=== PATIENT | female | born 1955 | race Caucasian/White ===

== ENCOUNTER 2017-04-01 22:24 | Observation (INO) ==
--- NOTE | 2017-04-01 23:08 | Emergency Department Note ---
Disposition Clinical Impression: Weakness, Ambulatory dysfunction Disposition: Admitted As Inpatient Condition: Fair Referrals: Ajit Lindo MD [Primary Care Provider] - Time of Disposition: 03:41 General Adult HPI - General Chief complaint: ED General Medical Stated complaint: agitation/cold legs Time Seen by Provider: 04/01/17 22:47 Source: patient, EMS Limitations: no limitations Nursing Notes Reviewed: Yes Vital Signs Reviewed: Yes - History of Present Illness HPI Narrative: Mrs. Monahan, a 62-year-old female, presents from home via EMS for evaluation of multiple complaints. She states she has a headache consistent with her baseline typical headaches with no associated vertigo, changes in vision, nausea , vomiting, or trauma. States that she has lower extremity weakness and is unable to straighten her legs. This is been intermittent for the past week and she has an establishing appointment with Dr. Garcia in neurology this week. We should know she has lower back pain which is consistent with her chronic back pain. Of note, on EMS arrival to her house, patient refused to stand from her wheelchair. After prolonged discussion between the patient and EMS personnel, patient stood and walked to the EMS cot. ROS: Positive: As above Negative: Fever, chills, nausea, vomiting, chest pain, palpitations, dyspnea, diaphoresis, abdominal pains, changes in bowel or bladder, trauma including falls and no incontinence of bowel or bladder, no lower extremity tingling or genital numbness. Pain Scale: 9 - Related Data Home Medications Medication Instructions Recorded Confirmed Alendronate Sodium 70 mg PO QWEEK 02/08/15 10/11/15 Divalproex (12 HR) [Depakote (12 500 mg PO BID 02/08/15 10/11/15 HR)] Lamotrigine [Lamictal] 150 mg PO BID 02/08/15 10/11/15 Polyethylene Glycol 3350 [MiraLAX] 17 gm PO BID 02/08/15 02/08/15 Ranitidine HCl [Zantac] 150 mg PO BID 02/08/15 10/11/15 Sennosides/Docusate Sodium [Senna 1 each PO DAILY PRN 02/08/15 10/11/15 Plus] Tiagabine [Gabitril] 4 mg PO BID 02/08/15 10/11/15 Bioflav,Lemon/Vit Bcomp,C [Ear 1 each PO DAILY 10/11/15 10/11/15 Health Formula Caplet] Cetirizine HCl [Zyrtec] 10 mg PO DAILY 10/11/15 10/11/15 Ergocalciferol (VITAMIN D2) 50,000 unit PO QWEEK 10/11/15 10/11/15 [Vitamin D2 (50,000 UNIT)] Fluticasone Propionate Nasal 2 spray NS DAILY 10/11/15 10/11/15 [Flonase] LORazepam [Ativan] 2 mg PO TID PRN 10/11/15 10/11/15 Latanoprost [Xalatan] 1 drop BOTH EYES HS 10/11/15 10/11/15 Metoprolol [Lopressor] 25 mg PO BID 10/11/15 10/11/15 Oxybutynin [Ditropan] 5 mg PO BID 10/11/15 10/11/15 Previous Rx's Medication Instructions Recorded Azithromycin [Azithromycin 6-Tab 250 mg PO PER PKG DI #6 tab 10/27/15 Pack] Naproxen [Naprosyn] 500 mg PO BID PRN #30 tablet 04/28/16 Fluticasone Propionate Nasal 50 mcg NS DAILY #1 bottle 11/06/16 [Flonase] Allergies Allergy/AdvReac Type Severity Reaction Status Date / Time acetaminophen [From Percocet] Allergy See Verified 01/08/16 12:39 Comments Amoxicillin Allergy See Verified 01/08/16 12:39 Comments aspirin [ASA] Allergy See Verified 01/08/16 12:39 Comments codeine Allergy See Verified 01/08/16 12:39 Comments diazepam Allergy See Verified 01/08/16 12:39 Comments morphine Allergy See Verified 01/08/16 12:39 Comments Oxycodone Allergy See Verified 01/08/16 12:39 Comments STEROIDS Allergy See Uncoded 09/29/14 17:27 Comments All systems ED: reviewed and negative except as stated. Review of Systems: As Per HPI Past Medical History - Past Medical History Medical history: Reports: DVT, hypertension, migraine, seizures Surgical history: Reports: hysterectomy Psychiatric history: Reports: anxiety, previous psychiatric hospitalization - Social History Smoking Status: Never smoker Smokeless Tobacco Status: No Alcohol use: Reports: none Drug use: Reports: none Physical Exam Vital Signs Reviewed General: Patient is alert, oriented, and in no acute distress. She appears frail and older than stated age. Head: atraumatic, normocephalic Eye: normal appearance, PERRL, EOMI, no scleral icterus, no conjunctival injection ENT: mucous membranes dry, normal external ear exam Neck: normal inspection, trachea midline, full ROM Chest: normal inspection, symmetric chest rise Respiratory: Poor respiratory effort. Bilateral breath sounds are clear without wheezing, crackles, or rhonchi. Cardiovascular: Regular rate and rhythm. No clicks, rubs, gallops, or murmors. Normal heart sounds. Abdomen: Bowel sounds present normoactive x-4 quadrants. Abdomen is soft, nondistended, and nontender. No guarding or rebound. No organomegaly noted. Musculoskeletal: Spontaneously moving all extremities. Patient's lower extremity strength exam is 1/5 and obscured by lack of cooperation. Skin: warm, dry, intact. Neuro: Alert and oriented x4. Sensation light touch intact. Psych: Patient's affect is appropriate for situation. - General Limitations: no limitations General appearance: alert, in no apparent distress Course Course Narrative: Patient symptoms are vague, not acute, and she has an appointment already established to follow up with neurology. Physical exam is unreliable secondary to lack of patient cooperation. Per EMS, patient refused to stand until they are able to convince her to transition to their cot which she was able to walk unassisted. While in the emergency department, patient refuses to be weightbearing. Eventually, she did need to use the restroom and was provided a bedside commode. At baseline, patient ambulates with her walker. Over the last couple days, she has been using her wheelchair for mobility secondary to inability to ambulate secondary to weakness. 02:40 Patient is able to stand at bedside and is full weightbearing. She is asking staff to massage her legs. She is unable to independently transition to the bedside commode. Patient reassessed. She now states her pain is bilateral behind her knees. She denies weakness and says that it is popliteal pain that is preventing her from walking. Physical exam shows no Betancourt's cyst. Patient states she has a history of "ligament injury" in the back of her knees. She is agreeable to lidocaine patch. Patient reassessed. She continues to state weakness of her lower extremities. No improvement in her popliteal pain. She is not safe to go home at this time. Assessment: Weakness, inability to ambulate. Needs PT/OT consult. Has home healthcare [facility] but this is not enough care for her. I discussed the patient with the admitting hospitalist who agrees to accept the patient for continued evaluation and monitoring. Vital Signs Temperature 98.1 F 04/01/17 22:28 Pulse Rate 96 04/01/17 22:28 Respiratory Rate 16 04/01/17 22:28 Blood Pressure 117/75 04/01/17 22:28 O2 Sat by Pulse Oximetry 97 04/01/17 22:28 Temperature 98.1 F 04/02/17 03:29 Pulse Rate 98 04/02/17 03:29 Respiratory Rate 18 04/02/17 03:29 Blood Pressure 124/79 04/02/17 03:29 O2 Sat by Pulse Oximetry 98 04/02/17 03:29 Oxygen Delivery Oxygen Delivery Room Air Medical Decision Making - Lab Data Result diagrams: 04/01/17 23:37 04/01/17 23:37 Lab Results 04/01/17 04/01/17 04/01/17 Range/Units 23:37 23:37 23:37 WBC 8.2 (4.3-11.1) K/mcL RBC 4.85 (3.82-4.97) M/mcL Hgb 15.1 (11.5-15.4) g/dL Hct 45.6 H (35.3-44.9) % MCV 94.0 (83.0-100.0) fL MCH 31.1 (28.0-33.3) pg MCHC 33.1 (31.6-35.5) g/dL RDW 13.0 (11.5-14.5) % Plt Count 369 (140-400) K/mcL MPV 9.0 L (9.4-12.4) fL Immature Gran % 0.5 (0-4) % Seg Neutrophils % 70.7 % Lymphocytes % 21.2 % Monocytes % 7.1 % Eosinophils % 0.1 % Basophils % 0.4 % Neutrophils # 5.8 (1.6-8.9) K/mcL Lymphocytes # 1.7 (0.6-4.6) K/mcL Monocytes # 0.6 (0.0-1.3) K/mcL Eosinophils # 0.0 (0.0-0.6) K/mcL Basophils # 0.0 (0.0-0.2) K/mcL Sodium 142 (136-145) mEq/L Potassium 4.5 (3.5-5.1) mEq/L Chloride 107 (98-107) mEq/L Carbon Dioxide 27 (23-29) mEq/L BUN 20 (8-23) mg/dL Creatinine 0.59 L (0.60-1.20) mg/dL Est GFR ( Amer) > 60 (> 60) Est GFR (Non-Af Amer) > 60 (> 60) BUN/Creatinine Ratio 34 H (6-26) Glucose 95 (70-105) mg/dL Calculated Osmolality 296 (280-300) Calcium 10.0 (8.6-10.3) mg/dL Urine Color (Yellow) Urine Clarity (Clear) Urine pH (5.0-8.0) pH Units Ur Specific [place] (1.010-1.025) Urine Protein (Neg-Trace) mg/dL Urine Glucose (UA) (Normal) mg/dL Urine Ketones (Negative) mg/dL Urine Blood (Negative) Urine Nitrite (Negative) Urine Bilirubin (Negative) Urine Urobilinogen (Normal) mg/dL Ur Leukocyte Esterase (Negative) Urine Microscopic RBC (0-3) per hpf Urine Microscopic WBC (0-3) per hpf Ur Squamous Epith Cells (None-Few) per lpf Urine Bacteria (None-Few) per hpf Hyaline Casts (None-Few) per lpf Ur Culture Indicated? (NO) Valproic Acid 20 L (50-100) mcg/mL 04/02/17 Range/Units 02:55 WBC (4.3-11.1) K/mcL RBC (3.82-4.97) M/mcL Hgb (11.5-15.4) g/dL Hct (35.3-44.9) % MCV (83.0-100.0) fL MCH (28.0-33.3) pg MCHC (31.6-35.5) g/dL RDW (11.5-14.5) % Plt Count (140-400) K/mcL MPV (9.4-12.4) fL Immature Gran % (0-4) % Seg Neutrophils % % Lymphocytes % % Monocytes % % Eosinophils % % Basophils % % Neutrophils # (1.6-8.9) K/mcL Lymphocytes # (0.6-4.6) K/mcL Monocytes # (0.0-1.3) K/mcL Eosinophils # (0.0-0.6) K/mcL Basophils # (0.0-0.2) K/mcL Sodium (136-145) mEq/L Potassium (3.5-5.1) mEq/L Chloride (98-107) mEq/L Carbon Dioxide (23-29) mEq/L BUN (8-23) mg/dL Creatinine (0.60-1.20) mg/dL Est GFR ( Amer) (> 60) Est GFR (Non-Af Amer) (> 60) BUN/Creatinine Ratio (6-26) Glucose (70-105) mg/dL Calculated Osmolality (280-300) Calcium (8.6-10.3) mg/dL Urine Color Yellow (Yellow) Urine Clarity Clear (Clear) Urine pH 6.0 (5.0-8.0) pH Units Ur Specific [place] 1.023 (1.010-1.025) Urine Protein Trace (Neg-Trace) mg/dL Urine Glucose (UA) Normal (Normal) mg/dL Urine Ketones 80 H (Negative) mg/dL Urine Blood Negative (Negative) Urine Nitrite Negative (Negative) Urine Bilirubin Negative (Negative) Urine Urobilinogen Normal (Normal) mg/dL Ur Leukocyte Esterase Moderate H (Negative) Urine Microscopic RBC 0-3 (0-3) per hpf Urine Microscopic WBC 5-15 H (0-3) per hpf Ur Squamous Epith Cells Many H (None-Few) per lpf Urine Bacteria None Seen (None-Few) per hpf Hyaline Casts None Seen (None-Few) per lpf Ur Culture Indicated? NO. (NO) Valproic Acid (50-100) mcg/mL
[2017-04-01] MEDS ORDERED: 0.9 % Sodium Chloride 1,000 ML IVC ONE (23:24)
[2017-04-01] MEDS ORDERED: Acetaminophen 325 MG TABLET PO ONE (23:29)
[2017-04-01 23:46] LABS: Basophils % 0.4 %; Eosinophils % 0.1 %; Hematocrit 45.6 % (35.3-44.9); Hemoglobin 15.1 g/dL (11.5-15.4); Immature Granulocytes % 0.5 % (0-4); Lymphocytes # 1.7 K/mcL (0.6-4.6); Lymphocytes % 21.2 %; Mean Corpuscular HGB Conc 33.1 g/dL (31.6-35.5); Mean Corpuscular Hemoglobin 31.1 pg (28.0-33.3); Monocytes # 0.6 K/mcL (0.0-1.3); Monocytes % 7.1 %; Neutrophils # 5.8 K/mcL (1.6-8.9); Platelet Count 369 K/mcL (140-400); Red Blood Count 4.85 M/mcL (3.82-4.97); Segmented Neutrophils % 70.7 %
[2017-04-02 00:11] LABS: BUN/Creatinine Ratio 34 (6-26); Blood Urea Nitrogen 20 mg/dL (8-23); Carbon Dioxide 27 mEq/L (23-29); Chloride 107 mEq/L (98-107); Glucose 95 mg/dL (70-105); Osmolality,Calculated 296 (280-300); Potassium 4.5 mEq/L (3.5-5.1); Sodium 142 mEq/L (136-145); eGFR For African Americans > 60 (> 60); eGFR For Non-African Americans > 60 (> 60)
[2017-04-02 03:01] LABS: Bilirubin,Urine Negative (Negative); Blood,Urine Negative (Negative); Clarity,Urine Clear (Clear); Color,Urine Yellow (Yellow); Glucose,Urine (UA) Normal (Normal); Ketones,Urine 80 mg/dL (Negative); Leukocyte Esterase,Urine Moderate (Negative); Nitrite,Urine Negative (Negative); Protein,Urine Trace mg/dL (Neg-Trace); Specific Gravity,Urine 1.023 (1.010-1.025); Urobilinogen,Urine Normal (Normal)
[2017-04-02 03:03] LABS: Bacteria,Urine None Seen per hpf (None-Few); Hyaline Casts,Urine None Seen per lpf (None-Few); RBC,Urine 0-3 per hpf (0-3); Squamous Epithelial Cell,Urine Many per lpf (None-Few)
--- NOTE | 2017-04-02 03:41 | Emergency Department Note ---
START Narrative - START START: I examined this patient and my medical decision-making was reviewed with the Resident Physician. I agree with the documented findings, disposition and treatment plan as described except to the extent set forth below. pt here for bilat leg weakness. has home health come to her place three times a week she said. she can't get around at home. too weak in her legs. no focal deficits. needs admitted for possible placement. PT OT consult.
[2017-04-02] MEDS ORDERED: Sennosides/Docusate Sodium TABLET PO PRN (04:14)
[2017-04-02] MEDS ORDERED: Naloxone 0.4 MG/ML INJ IVP PRN (04:16)
--- NOTE | 2017-04-02 04:28 | Internal Med History&Physical ---
Date of Encounter: 04/02/17 Time of Encounter: 04:26 Assessment and Plan (1) Functional paraparesis Current visit: Yes Status: Acute b/l LE extremity possible with component of paresthesia PT/OT eval Explore placement if qualify but may be difficult given observation for now Close monitoring and functional testing to be further performed over next 24-48 hr (2) Epilepsy Current visit: No Status: Chronic continue AED Qualifiers: Epilepsy type: unspecified Intractability: not intractable Status epilepticus: without status epilepticus Qualified Code(s): G40.909 - Epilepsy , unspecified, not intractable, without status epilepticus (3) SLADE (generalized anxiety disorder) Current visit: No Status: Chronic continue ativan Internal Medicine - H&P: HPI Chief complaint: LLE weakness, cold feet, paresthesia History of present illness: Ms. Monahan is a 62 year old female with hx of seizure, HTN, anxiety who presents with acute on chronic symptoms of LLE weakness, cold feet, paresthesia . She reports recently having spent time in a SNF for 3-4 weeks in Jan 2017 for rehab. She has a chronic hx of b/l LE weakness. Since returning home, she has [facility] who visits 3 x weekly and uses a walker. Since wednesday this week, she developed acute worsening of b/l LE weakness associated with cold feet, paresthesia from knees down, unable to straighten the knee joint and weakness to the point where she has difficulty weight bear. She denies any recent trauma nor does she have urine or bowels problems associated. Past Med Surg Social Fam HX - Past Medical History Medical history: DVT, hypertension, migraine, seizures Psychiatric history: anxiety, previous psychiatric hospitalization - Past Surgical History Surgical History: hysterectomy - Social History Smoking Status: Never smoker Smokeless Tobacco Status: No Alcohol use: none Drug use: none - Family History Mother Living Status: Hx Family Cardiac Disorders: Yes Hx Family Respiratory Disorders: No Hx Family Cancer: No Hx Family GI Disorders: No Hx Family Endocrine Disorder: Yes (DM) Hx Family Neuromuscular Disorders: No Hx Family Neurologic Disorders: No Hx Family HEENT Disorders: No Hx Family Autoimmune Disorders: No Father Living Status: Hx Family Cardiac Disorders: Yes (CHF) Hx Family Respiratory Disorders: No Hx Family Cancer: No Hx Family GI Disorders: No Hx Family Endocrine Disorder: No Hx Family Neuromuscular Disorders: No Hx Family Neurologic Disorders: No Hx Family HEENT Disorders: No Hx Family Autoimmune Disorders: No Internal Medicine - H&P: Meds Alendronate Sodium 70 mg PO QWEEK 02/08/15 [History] Divalproex (12 HR) [Depakote (12 HR)] 500 mg PO BID 02/08/15 [History] Lamotrigine [Lamictal] 150 mg PO BID 02/08/15 [History] Polyethylene Glycol 3350 [MiraLAX] 17 gm PO BID 02/08/15 [History] Ranitidine HCl [Zantac] 150 mg PO BID 02/08/15 [History] Sennosides/Docusate Sodium [Senna Plus] 1 each PO DAILY PRN 02/08/15 [History] Tiagabine [Gabitril] 4 mg PO BID 02/08/15 [History] Bioflav,Lemon/Vit Bcomp,C [Ear Health Formula Caplet] 1 each PO DAILY 10/11/15 [ History] Cetirizine HCl [Zyrtec] 10 mg PO DAILY 10/11/15 [History] Ergocalciferol (VITAMIN D2) [Vitamin D2 (50,000 UNIT)] 50,000 unit PO QWEEK [History] Fluticasone Propionate Nasal [Flonase] 2 spray NS DAILY 10/11/15 [History] LORazepam [Ativan] 2 mg PO TID PRN 10/11/15 [History] Latanoprost [Xalatan] 1 drop BOTH EYES HS 10/11/15 [History] Metoprolol [Lopressor] 25 mg PO BID 10/11/15 [History] Oxybutynin [Ditropan] 5 mg PO BID 10/11/15 [History] Azithromycin [Azithromycin 6-Tab Pack] 250 mg PO PER PKG DI #6 tab 10/27/15 [Rx] Naproxen [Naprosyn] 500 mg PO BID PRN #30 tablet 04/28/16 [Rx] Fluticasone Propionate Nasal [Flonase] 50 mcg NS DAILY #1 bottle 11/06/16 [Rx] 3 Allergy/AdvReac Type Severity Reaction Status Date / Time acetaminophen [From Percocet] Allergy See Verified 01/08/16 12:39 Comments Amoxicillin Allergy See Verified 01/08/16 12:39 Comments aspirin [ASA] Allergy See Verified 01/08/16 12:39 Comments codeine Allergy See Verified 01/08/16 12:39 Comments diazepam Allergy See Verified 01/08/16 12:39 Comments morphine Allergy See Verified 01/08/16 12:39 Comments Oxycodone Allergy See Verified 01/08/16 12:39 Comments STEROIDS Allergy See Uncoded 09/29/14 17:27 Comments All Systems PM: A 10-system review of systems was performed and is negative for pertinent findings except as documented above in the HPI. Review of systems: ROS 14 point review of systems reviewed as best as possible given presentation. Pertinent positive or negative as per HPI or otherwise reviewed as negative - Constitutional Vitals: Temp Pulse Resp BP Pulse Ox 98.1 F 98 18 124/79 98 04/02/17 03:29 04/02/17 03:29 04/02/17 03:29 04/02/17 03:29 04/02/17 03:29 Exam: General - AAO x 3 Psych - Appropriate affect/speech. No agitation Eyes - ISAIAH. Eye lids intact. No scleral icterus Neuro - Generalized weakness of B/l LE extremities 4/5. Knee flexion with some resistance straightening Heart - Sinus. RRR. S1 and S2 present. No added HS/murmurs appreciated. No elevated JVD appreciated. Lung - Adequate air entry b/l, No crackles/wheezes appreciated GI - Soft, non-tender. No hepatosplenomegaly/ascites. BS+ - No CVA/suprapubic tenderness or palpable bladder distension Skin - Intact. No rash/petechiae/ecchymosis. Warm extremities. Peripheral foot pulse present Internal Med - H&P Results - Labs CBC & Chem 7: 04/01/17 23:37 04/01/17 23:37
[2017-04-02] MEDS: *HR* LORazepam 1 MG TABLET PO PRN ×2 (05:07→18:04)
[2017-04-02] MEDS: lamoTRIgine 100 MG TABLET PO SCH ×2 (09:04→21:16)
[2017-04-02] MEDS: Divalproex (12 HR) 500 MG TABLET PO SCH ×2 (09:04→21:17)
[2017-04-02] MEDS: Famotidine 20 MG TABLET PO SCH ×2 (09:04→15:39)
[2017-04-02] MEDS: Vitamin B Complex/Vit C/Vit E 1 EACH TABLET PO SCH (15:38)
[2017-04-02] MEDS: Acetaminophen 325 MG TABLET PO PRN (15:39)
[2017-04-02] MEDS: Loratadine 10 MG TABLET PO SCH (15:39)
--- NOTE | 2017-04-02 17:42 | Event Note ---
Date of Encounter: 04/02/17 Time of Encounter: 17:42 Patient is going to require rehabilitation placement secondary to weakness as per PT OT evaluation. financial services representative consult and working on placement hopefully she will be able to go in the morning. Patient is stable
[2017-04-02] MEDS: Latanoprost 2.5 ML BOTTLE BOTH EYES SCH (21:17)
[2017-04-02] MEDS ORDERED: *HR* LORazepam 2 MG/ML VIAL IVP ONE (23:36)
[2017-04-03] MEDS: Acetaminophen 325 MG TABLET PO PRN ×2 (06:19→18:55)
[2017-04-03] MEDS: *HR* LORazepam 1 MG TABLET PO PRN ×4 (06:19→22:21)
[2017-04-03] MEDS: Famotidine 20 MG TABLET PO SCH ×2 (06:27→17:21)
[2017-04-03] MEDS: Vitamin B Complex/Vit C/Vit E 1 EACH TABLET PO SCH (09:00)
[2017-04-03] MEDS: Divalproex (12 HR) 500 MG TABLET PO SCH ×2 (09:00→20:12)
[2017-04-03] MEDS: lamoTRIgine 100 MG TABLET PO SCH ×2 (09:01→20:15)
[2017-04-03] MEDS: Loratadine 10 MG TABLET PO SCH (09:01)
--- NOTE | 2017-04-03 13:10 | Internal Med Progress Note ---
Date of Encounter: 04/03/17 Time of Encounter: 12:56 - Assessment and plan (1) Ambulatory dysfunction Current Visit: Yes Status: Acute Assessment and plan: Patient with inflammatory dysfunction secondary to bilateral leg weakness and paresthesia. PT OT recommends placement Patient is a fall risk (2) Functional paraparesis Current Visit: Yes Status: Acute Assessment and plan: b/l LE extremity weakness and paresthesia PT/OT completed and they are recommending placement (3) Generalized weakness Current Visit: Yes Status: Acute (4) Epilepsy Current Visit: No Status: Chronic Assessment and plan: No seizures Continue seizure precautions Continue her home medications Qualifiers: Epilepsy type: unspecified Intractability: not intractable Status epilepticus: without status epilepticus Qualified Code(s): G40.909 - Epilepsy , unspecified, not intractable, without status epilepticus (5) SLADE (generalized anxiety disorder) Current Visit: No Status: Chronic Assessment and plan: Continue home medications I did speak to her family physician yesterday who told me that she has not been compliant with her outpatient mental health follow-up. Patient had previous psychiatric hospitalization with psychosis (6) DVT prophylaxis Current Visit: Yes Status: Acute Assessment and plan: Lovenox subcutaneous for DVT prophylaxis - Subjective Interval history: Patient is very anxious and unfocused on conversation, she is fixated on the fact that she is taking too much Ativan even though she requests it. I told her we were cutting back on her dose. We would watch her. She states she is very anxious. She had no other complaints at this time. She still has tingling and weakness in her legs per her report. l - Constitutional Vitals: Temp Pulse Resp BP Pulse Ox 97.6 F 102 18 115/78 100 04/03/17 11:20 04/03/17 11:20 04/03/17 11:20 04/03/17 11:20 04/03/17 11:20 General appearance: Present: cachectic, cooperative, A&O X 3, no acute distress - Head Head exam: Present: atraumatic, normocephalic - Eye Eye exam: Present: PERRL, conjuntiva pink, sclera anicteric Pupils: Present: PERRL - Neck Neck exam general surgery: Present: supple, trachea midline. Absent: lymphadenopathy - Respiratory Respiratory exam: Present: CTAB. Absent: accessory muscle use, rales, rhonchi, wheezes - Cardiovascular Cardiovascular exam: Present: RRR, +S1, +S2. Absent: diastolic murmur, gallop, rubs, systolic murmur - GI/Abdominal GI/Abdominal exam: Present: normal bowel sounds, soft, no peritoneal signs. Absent: distended, tenderness - Extremities Exam Extremities exam: Present: warm, radial pulses palpable and symmetrical. Absent : calf tenderness, cyanotic, joint swelling, pedal edema - Neurological Exam Neurological exam: Present: abnormal gait, alert, motor sensory deficit, oriented X3, no focal deficits. Absent: strengths equal and symetr throughout, pronater drift, facial droop, speech deficit - Psychiatric Psychiatric exam: Present: anxious. Absent: suicidal ideation - Skin Skin exam: Present: dry, intact, warm Internal Medicine: Result - Labs CBC & Chem 7: 04/01/17 23:37 04/01/17 23:37 Consult Discharge Plan - Plan Referrals: Ajit Lindo MD [Primary Care Provider] -
[2017-04-03] MEDS: *HR* Enoxaparin 40 MG/0.4 ML SYRINGE SQ SCH (14:07)
[2017-04-03] MEDS: Latanoprost 2.5 ML BOTTLE BOTH EYES SCH (22:20)
[2017-04-04] MEDS: Acetaminophen 325 MG TABLET PO PRN ×3 (01:40→21:59)
[2017-04-04] MEDS: *HR* Enoxaparin 40 MG/0.4 ML SYRINGE SQ SCH (05:21)
[2017-04-04] MEDS: *HR* LORazepam 1 MG TABLET PO PRN ×2 (06:23→19:21)
[2017-04-04] MEDS: Vitamin B Complex/Vit C/Vit E 1 EACH TABLET PO SCH (08:33)
[2017-04-04] MEDS: Famotidine 20 MG TABLET PO SCH ×2 (08:33→14:58)
[2017-04-04] MEDS: Divalproex (12 HR) 500 MG TABLET PO SCH ×2 (08:33→22:01)
[2017-04-04] MEDS: lamoTRIgine 100 MG TABLET PO SCH ×2 (08:33→22:00)
[2017-04-04] MEDS: Loratadine 10 MG TABLET PO SCH (08:34)
[2017-04-04 10:04] LABS: BUN/Creatinine Ratio 36 (6-26); Blood Urea Nitrogen 23 mg/dL (8-23); Calcium 8.9 mg/dL (8.6-10.3); Carbon Dioxide 29 mEq/L (23-29); Chloride 107 mEq/L (98-107); Glucose 95 mg/dL (70-105); Osmolality,Calculated 297 (280-300); Potassium 3.9 mEq/L (3.5-5.1); Sodium 142 mEq/L (136-145); eGFR For African Americans > 60 (> 60); eGFR For Non-African Americans > 60 (> 60)
[2017-04-04 10:06] LABS: Basophils % 0.6 %; Eosinophils # 0.1 K/mcL (0.0-0.6); Eosinophils % 1.8 %; Hematocrit 36.6 % (35.3-44.9); Hemoglobin 11.8 g/dL (11.5-15.4); Immature Granulocytes % 0.7 % (0-4); Immature Platelets 1.7 % (1.1-6.1); Lymphocytes # 2.1 K/mcL (0.6-4.6); Lymphocytes % 31.5 %; Mean Corpuscular HGB Conc 32.2 g/dL (31.6-35.5); Mean Corpuscular Hemoglobin 31.3 pg (28.0-33.3); Mean Corpuscular Volume 97.1 fL (83.0-100.0); Mean Platelet Volume 9.1 fL (9.4-12.4); Monocytes # 0.7 K/mcL (0.0-1.3); Monocytes % 9.6 %; Neutrophils # 3.8 K/mcL (1.6-8.9); Platelet Count 311 K/mcL (140-400); Red Blood Count 3.77 M/mcL (3.82-4.97); Red Cell Distribution Width 13.3 % (11.5-14.5); Segmented Neutrophils % 55.8 %
--- NOTE | 2017-04-04 14:43 | Internal Med Progress Note ---
Date of Encounter: 04/04/17 Time of Encounter: 14:41 - Assessment and plan (1) Ambulatory dysfunction Current Visit: Yes Status: Acute Assessment and plan: Patient with inflammatory dysfunction secondary to bilateral leg weakness and paresthesia. PT / OT recommends placement Patient is a fall risk (2) Functional paraparesis Current Visit: Yes Status: Acute Assessment and plan: Bilateral LE extremity weakness and paresthesia PT/OT are recommending placement Await placement (3) Generalized weakness Current Visit: Yes Status: Acute (4) Epilepsy Current Visit: No Status: Chronic Assessment and plan: No seizure activity Continue seizure precautions Continue her home medications Qualifiers: Epilepsy type: unspecified Intractability: not intractable Status epilepticus: without status epilepticus Qualified Code(s): G40.909 - Epilepsy , unspecified, not intractable, without status epilepticus (5) SLADE (generalized anxiety disorder) Current Visit: No Status: Chronic Assessment and plan: Continue home medications except have decreased Ativan dose to 1 mg instead of the 2 mg she takes at home I did speak to her family physician who told me that she has not been compliant with her outpatient mental health follow-up. Patient had previous psychiatric hospitalization with psychosis (6) DVT prophylaxis Current Visit: Yes Status: Acute Assessment and plan: Lovenox subcutaneous DVT prophylaxis - Subjective Interval history: Patient is very anxious and unfocused on conversation, she is fixated on Ativan dosing. She states she is very anxious. She had no other complaints except for the tingling and weakness in her legs. - Constitutional Vitals: Temp Pulse Resp BP Pulse Ox 97.7 F 71 17 99/64 97 04/04/17 11:44 04/04/17 11:44 04/04/17 11:44 04/04/17 11:44 04/04/17 11:44 General appearance: Present: cachectic, cooperative, disheveled, A&O X 3, pleasant, no acute distress, underweight. Absent: answers questions appropriately - Head Head exam: Present: atraumatic, normocephalic - Eye Eye exam: Present: PERRL, conjuntiva pink, sclera anicteric Pupils: Present: PERRL - Neck Neck exam general surgery: Present: supple, trachea midline. Absent: lymphadenopathy - Respiratory Respiratory exam: Present: CTAB. Absent: accessory muscle use, rales, rhonchi, wheezes - Cardiovascular Cardiovascular exam: Present: RRR, +S1, +S2. Absent: diastolic murmur, gallop, rubs, systolic murmur - GI/Abdominal GI/Abdominal exam: Present: normal bowel sounds, soft, no peritoneal signs. Absent: distended, tenderness - Extremities Exam Extremities exam: Present: warm, radial pulses palpable and symmetrical. Absent : calf tenderness, cyanotic, pedal edema - Neurological Exam Neurological exam: Present: oriented X3, no focal deficits. Absent: strengths equal and symetr throughout, pronater drift, facial droop, speech deficit - Skin Skin exam: Present: dry, intact, warm Internal Medicine: Result - Labs CBC & Chem 7: 04/04/17 09:50 04/04/17 08:57 Labs: Short CBC 04/04/17 Range/Units 09:50 WBC 6.8 (4.3-11.1) K/mcL Hgb 11.8 D (11.5-15.4) g/dL Hct 36.6 (35.3-44.9) % Plt Count 311 (140-400) K/mcL Neutrophils # 3.8 (1.6-8.9) K/mcL BMP 04/04/17 08:57 Sodium 142 Potassium 3.9 Chloride 107 Carbon Dioxide 29 BUN 23 Creatinine 0.64 Glucose 95 Calcium 8.9 Consult Discharge Plan - Plan Referrals: Ajit Lindo MD [Primary Care Provider] -
[2017-04-04] MEDS: Latanoprost 2.5 ML BOTTLE BOTH EYES SCH (22:03)
[2017-04-05] MEDS: Acetaminophen 325 MG TABLET PO PRN ×2 (03:36→10:25)
[2017-04-05] MEDS: *HR* Enoxaparin 40 MG/0.4 ML SYRINGE SQ SCH (03:37)
[2017-04-05] MEDS: *HR* LORazepam 1 MG TABLET PO PRN ×2 (03:37→13:41)
[2017-04-05] MEDS: lamoTRIgine 100 MG TABLET PO SCH (09:39)
[2017-04-05] MEDS: Loratadine 10 MG TABLET PO SCH (09:40)
[2017-04-05] MEDS: Vitamin B Complex/Vit C/Vit E 1 EACH TABLET PO SCH (09:40)
[2017-04-05] MEDS: Divalproex (12 HR) 500 MG TABLET PO SCH (09:40)
[2017-04-05] MEDS: Famotidine 20 MG TABLET PO SCH (09:42)
[2017-04-05 11:56] VITALS: BP 94/53
--- NOTE | 2017-04-05 16:04 | Discharge Summary ---
Date of Encounter: 04/05/17 Time of Encounter: 16:02 - Discharge Diagnosis (1) Ambulatory dysfunction Priority: Primary Status: Acute Comments: Patient with inflammatory dysfunction secondary to bite lateral leg weakness and paresthesia + PT OT recommended placement Patient is a significant fall risk (2) Functional paraparesis Priority: Primary Status: Acute Comments: Bilateral lower extremity weakness and paresthesia although it is slowly improving PT and OT recommend placement Patient is not able to be out of bed and ambulate by herself (3) Generalized weakness Priority: Primary Status: Acute Comments: Secondary to above problems and deconditioning (4) Epilepsy Priority: Secondary Status: Chronic Comments: No seizure activity while here continue seizure precautions and continue her home medications Qualifiers: Epilepsy type: unspecified Intractability: not intractable Status epilepticus: without status epilepticus Qualified Code(s): G40.909 - Epilepsy , unspecified, not intractable, without status epilepticus (5) SLADE (generalized anxiety disorder) Priority: Secondary Status: Chronic Comments: Review home medications except for the decreased Ativan dose from 2 mg to 1 mg as she was obtunded taking the 2 mg. Her family physician spoke to me via phone and said she has not been compliant with outpatient mental health follow-up Patient has had previous psychiatric hospitalizations with psychosis + she would benefit from a mental health evaluation in her community [facility] - Discharge Medications Prescriptions: LORazepam [Ativan] 1 mg PO QID PRN 5 Days #20 tablet PRN Reason: Anxiety Home Medications: Alendronate Sodium 70 mg PO QWEEK 02/08/15 [History] Divalproex (12 HR) [Depakote (12 HR)] 500 mg PO BID 02/08/15 [History] Lamotrigine [Lamictal] 150 mg PO BID 02/08/15 [History] Polyethylene Glycol 3350 [MiraLAX] 17 gm PO BID 02/08/15 [History] Ranitidine HCl [Zantac] 150 mg PO BID 02/08/15 [History] Sennosides/Docusate Sodium [Senna Plus] 1 each PO DAILY PRN 02/08/15 [History] Tiagabine [Gabitril] 4 mg PO BID 02/08/15 [History] Bioflav,Lemon/Vit Bcomp,C [Ear [employer] Formula Caplet] 1 each PO DAILY 10/11/15 [ History] Cetirizine HCl [Zyrtec] 10 mg PO DAILY 10/11/15 [History] Ergocalciferol (VITAMIN D2) [Vitamin D2 (50,000 UNIT)] 50,000 unit PO QWEEK [History] Latanoprost [Xalatan] 1 drop BOTH EYES HS 10/11/15 [History] Metoprolol [Lopressor] 25 mg PO BID 10/11/15 [History] Oxybutynin [Ditropan] 5 mg PO BID 10/11/15 [History] Naproxen [Naprosyn] 500 mg PO BID PRN #30 tablet 04/28/16 [Rx] Buspirone HCl [Buspar] 7.5 mg PO BID 04/02/17 [History] Promethazine [Phenergan] 12.5 mg PO BID 04/02/17 [History] LORazepam [Ativan] 1 mg PO QID PRN 5 Days #20 tablet 04/05/17 [Rx] LORazepam [Ativan] 1 mg PO QID PRN 5 Days #20 tablet 04/05/17 [Rx] Allergies/Adverse Reactions: 3 Allergy/AdvReac Type Severity Reaction Status Date / Time Amoxicillin Allergy See Verified 01/08/16 12:39 Comments aspirin [ASA] Allergy See Verified 01/08/16 12:39 Comments codeine Allergy See Verified 01/08/16 12:39 Comments diazepam Allergy See Verified 01/08/16 12:39 Comments morphine Allergy See Verified 01/08/16 12:39 Comments Oxycodone Allergy See Verified 01/08/16 12:39 Comments STEROIDS Allergy See Uncoded 09/29/14 17:27 Comments Date of admission: 04/02/17 03:51 Primary care physician: Ajit Lindo MD Consults: 04/02/17 04:18 Consult to Occupational Therapy [CONS] Routine Comment: Evaluate, develop and implement POC Reason for Consult: ambulate and assess Consult to Physical Therapy [CONS] Routine Comment: Evaluate, develop and implement POC Reason for Consult: ambulate assess for placement need 04/04/17 16:48 Consult to [employer] Supervisor [CONS] Routine Reason for SW Consult: Possible ECF placement Discharging clinician: Sherrie Barba Anticipated date of discharge: 04/05/17 - Patient Status Disposition: Transfer SNF Condition: Fair Functional capacity at discharge: uses cane/walker Overall status at discharge: patient is progressing back to baseline - Discharge Instructions Follow Up With: Ajit Lindo MD [Primary Care Provider] - Forms: ED Satisfaction Letter, Work/School Release - Diet and Activity Activity: as per physical therapy Diet: regular diet Interval History: Patient states her legs are a little last week and a little S tingly. She still very weak to get up by herself but is still fall risk. She denies any chest pain or shortness of breath she continues to remains fixated on her Ativan dosing and how it makes her feel. Hospital course: Ms. Monahan is a 62 year old female admitted with amplitude dysfunction. Multiple Psychiatric issues. Please see the details in my assessment and plan for further information on this admission - Time Spent with Patient Total time spent providing and/or coordinating discharge services: Less than 30 minutes - Constitutional Vitals: Temp Pulse Resp BP Pulse Ox 98.4 F 77 17 94/53 95 04/05/17 11:53 04/05/17 11:53 04/05/17 11:53 04/05/17 11:53 04/05/17 11:53 General appearance: Present: cachectic, cooperative, disheveled, A&O X 3, pleasant, no acute distress, underweight. Absent: answers questions appropriately - Head Head exam: Present: atraumatic, normocephalic - Eye Eye exam: Present: PERRL, conjuntiva pink, sclera anicteric Pupils: Present: PERRL - Neck Neck exam general surgery: Present: supple, trachea midline. Absent: lymphadenopathy - Respiratory Respiratory exam: Present: CTAB. Absent: accessory muscle use, rales, rhonchi, wheezes - Cardiovascular Cardiovascular exam: Present: RRR, +S1, +S2. Absent: diastolic murmur, gallop, rubs, systolic murmur - GI/Abdominal GI/Abdominal exam: Present: normal bowel sounds, soft, no peritoneal signs. Absent: distended, tenderness - Extremities Exam Extremities exam: Present: warm, radial pulses palpable and symmetrical. Absent : calf tenderness, cyanotic, pedal edema - Neurological Exam Neurological exam: Present: abnormal gait, CN II-XII intact, oriented X3. Absent: strengths equal and symetr throughout, pronater drift, facial droop, speech deficit - Skin Skin exam: Present: dry, intact, warm
--- NOTE | 2017-04-05 16:23 | Physician Discharge Referral ---
ExtendedCare Referral Info Transfer To: [facility] Provider in Charge: [facility] Level of Care: Skilled - Diagnosis (1) Ambulatory dysfunction Priority: Primary Status: Acute (2) Functional paraparesis Priority: Primary Status: Acute (3) Generalized weakness Priority: Primary Status: Acute (4) Epilepsy Priority: Secondary Status: Chronic (5) SLADE (generalized anxiety disorder) Priority: Primary Status: Chronic - Transfer Medications Prescriptions: LORazepam [Ativan] 1 mg PO QID PRN 5 Days #20 tablet PRN Reason: Anxiety Home Medications: Alendronate Sodium 70 mg PO QWEEK 02/08/15 [History] Divalproex (12 HR) [Depakote (12 HR)] 500 mg PO BID 02/08/15 [History] Lamotrigine [Lamictal] 150 mg PO BID 02/08/15 [History] Polyethylene Glycol 3350 [MiraLAX] 17 gm PO BID 02/08/15 [History] Ranitidine HCl [Zantac] 150 mg PO BID 02/08/15 [History] Sennosides/Docusate Sodium [Senna Plus] 1 each PO DAILY PRN 02/08/15 [History] Tiagabine [Gabitril] 4 mg PO BID 02/08/15 [History] Bioflav,Lemon/Vit Bcomp,C [Ear [employer] Formula Caplet] 1 each PO DAILY 10/11/15 [ History] Cetirizine HCl [Zyrtec] 10 mg PO DAILY 10/11/15 [History] Ergocalciferol (VITAMIN D2) [Vitamin D2 (50,000 UNIT)] 50,000 unit PO QWEEK [History] Latanoprost [Xalatan] 1 drop BOTH EYES HS 10/11/15 [History] Metoprolol [Lopressor] 25 mg PO BID 10/11/15 [History] Oxybutynin [Ditropan] 5 mg PO BID 10/11/15 [History] Naproxen [Naprosyn] 500 mg PO BID PRN #30 tablet 04/28/16 [Rx] Buspirone HCl [Buspar] 7.5 mg PO BID 04/02/17 [History] Promethazine [Phenergan] 12.5 mg PO BID 04/02/17 [History] LORazepam [Ativan] 1 mg PO QID PRN 5 Days #20 tablet 04/05/17 [Rx] LORazepam [Ativan] 1 mg PO QID PRN 5 Days #20 tablet 04/05/17 [Rx] Allergies/Adverse Reactions: 3 Allergy/AdvReac Type Severity Reaction Status Date / Time Amoxicillin Allergy See Verified 01/08/16 12:39 Comments aspirin [ASA] Allergy See Verified 01/08/16 12:39 Comments codeine Allergy See Verified 01/08/16 12:39 Comments diazepam Allergy See Verified 01/08/16 12:39 Comments morphine Allergy See Verified 01/08/16 12:39 Comments Oxycodone Allergy See Verified 01/08/16 12:39 Comments STEROIDS Allergy See Uncoded 09/29/14 17:27 Comments - Respiratory Orders Smoking Cessation: Smoking cessation has been advised. For more information, call the [place] Tobacco Quit Line at 7-997-USEX-NOW. - Ancillary Orders May use pressure relief devices daily prn - Advance Directives Living Will: No Power of Demo Event Specialist: No Code Status: Full Code - History and Physical History/Physical reviewed & approved w/add comments: yes - Mobility Orders Other (Issues to follow risk and needs to be up with supervision) - Rehabiliation Orders Rehab Orders: Evaluation for Physical Therapy, Evaluation for Occupational Therapy - Diet Orders Regular CERTIFICATION: I certify that the transfer of the above named patient to an Extended Care Facility is necessary for the continuing treatment of the diagnosis listed. The above information is true and accurate reflection of patient's current condition. Confidential - Redisclosure prohibited without a patient's written consent.
== END 2017-04-05 17:54 ==
LOC: 3BNU 22:24 → EMEROO 22:24 → 3BNU 04-02 04:09
PROVIDERS: ADMIT Registered Nurse; ATTEND Registered Nurse

== ENCOUNTER 2020-01-12 11:17 | Inpatient (IN) ==
[2020-01-12 11:47] LABS: Basophils # 0.1 K/mcL (0.0-0.2); Basophils % 1.1 %; Eosinophils # 0.3 K/mcL (0.0-0.6); Eosinophils % 4.6 %; Hematocrit 39.2 % (35.3-44.9); Hemoglobin 12.5 g/dL (11.5-15.4); Immature Granulocytes % 1.2 % (0-4); Lymphocytes # 2.3 K/mcL (0.6-4.6); Lymphocytes % 40.5 %; Mean Corpuscular HGB Conc 31.9 g/dL (31.6-35.5); Mean Corpuscular Hemoglobin 31.4 pg (28.0-33.3); Mean Corpuscular Volume 98.5 fL (83.0-100.0); Mean Platelet Volume 9.3 fL (9.4-12.4); Monocytes # 0.5 K/mcL (0.0-1.3); Monocytes % 7.9 %; Neutrophils # 2.6 K/mcL (1.6-8.9); Platelet Count 279 K/mcL (140-400); Red Blood Count 3.98 M/mcL (3.82-4.97); Red Cell Distribution Width 12.4 % (11.5-14.5); Segmented Neutrophils % 44.7 %; White Blood Count 5.7 K/mcL (4.3-11.1)
[2020-01-12 11:50] LABS: Bilirubin,Urine Negative (Negative); Blood,Urine Negative (Negative); Clarity,Urine Clear (Clear); Color,Urine Light-Yellow (Yellow); Glucose,Urine (UA) Normal (Normal); Ketones,Urine Negative (Negative); Leukocyte Esterase,Urine Negative (Negative); Nitrite,Urine Negative (Negative); PH,Urine 6.5 pH Units (5.0-8.0); Protein,Urine Negative (Neg-Trace); Specific Gravity,Urine 1.024 (1.010-1.025); Urobilinogen,Urine Normal (Normal)
[2020-01-12] MEDS ORDERED: 0.9 % Sodium Chloride 1,000 ML IVC ONE (11:56)
[2020-01-12 12:08] LABS: Amphetamine Screen,Urine Negative ng/mL (Cutoff=1000); Barbiturate Screen,Urine Negative ng/mL (Cutoff=200); Benzodiazepines Screen,Urine Negative ng/mL (Cutoff=200); Cannabinoid Screen,Urine Negative ng/mL (Cutoff = 50); Cocaine Screen,Urine Negative ng/mL (Cutoff= 300); Opiate Screen,Urine Negative ng/mL (Cutoff=300); Phencyclidine Screen,Urine Negative ng/mL (Cutoff=25)
[2020-01-12 12:28] LABS: Acetaminophen < 10 mcg/mL (10-20); BUN/Creatinine Ratio 32 (6-26); Blood Urea Nitrogen 33 mg/dL (8-23); Calcium 9.8 mg/dL (8.6-10.3); Carbon Dioxide 31 mEq/L (23-29); Chloride 102 mEq/L (98-107); Ethanol < 10 mg/dL (Less than 10); Glucose 90 mg/dL (70-105); Osmolality,Calculated 297 (280-300); Potassium 5.2 mEq/L (3.5-5.1); Salicylate < 2.5 mg/dL (15.0-30.0); Sodium 140 mEq/L (136-145); Valproate 85 mcg/mL (50-100); eGFR For African Americans > 60 (> 60); eGFR For Non-African Americans 54 (> 60)
[2020-01-12] MEDS ORDERED: Naloxone 0.4 MG/ML INJ IVP PRN (18:06)
[2020-01-12] MEDS ORDERED: *HR* LORazepam 2 MG/ML VIAL IVP PRN (19:01)
[2020-01-12] MEDS: *HR* Heparin 5,000 UNIT/ML VIAL SQ SCH (21:38)
[2020-01-12 22:08] LABS: Creatine Kinase 30 Units/L (30-223)
[2020-01-12] MEDS: Ringers Solution, Lactated 1,000 ML IVC SCH (22:57)
[2020-01-12] MEDS: Acetaminophen 325 MG TABLET PO PRN (23:02)
[2020-01-13] MEDS ORDERED: Acetaminophen IV 500 MG/50 ML INFUS..BTL IVPB ONE (01:24)
[2020-01-13] MEDS: *HR* Heparin 5,000 UNIT/ML VIAL SQ SCH ×3 (05:12→20:10)
[2020-01-13] MEDS: Ringers Solution, Lactated 1,000 ML IVC SCH (05:53)
[2020-01-13 06:37] LABS: Hemoglobin 12.2 g/dL (11.5-15.4); Mean Corpuscular Hemoglobin 31.6 pg (28.0-33.3); Mean Corpuscular Volume 95.9 fL (83.0-100.0); Mean Platelet Volume 9.7 fL (9.4-12.4); Platelet Count 276 K/mcL (140-400); Red Blood Count 3.86 M/mcL (3.82-4.97); White Blood Count 7.9 K/mcL (4.3-11.1)
[2020-01-13 06:56] LABS: BUN/Creatinine Ratio 29 (6-26); Blood Urea Nitrogen 23 mg/dL (8-23); Calcium 9.4 mg/dL (8.6-10.3); Carbon Dioxide 25 mEq/L (23-29); Chloride 107 mEq/L (98-107); Glucose 116 mg/dL (70-105); Magnesium 1.9 mg/dL (1.6-2.6); Osmolality,Calculated 291 (280-300); Phosphorous 3.6 mg/dL (2.7-4.5); Potassium 4.3 mEq/L (3.5-5.1); Sodium 138 mEq/L (136-145); eGFR For African Americans > 60 (> 60); eGFR For Non-African Americans > 60 (> 60)
[2020-01-13] MEDS ORDERED: lamoTRIgine 100 MG TABLET PO STA (12:06)
[2020-01-13 14:08] LABS: Folate 12.9 ng/mL (3.0-16.0)
[2020-01-13] MEDS ORDERED: hydrOXYzine pamoate 25 MG CAPSULE PO PRN (16:20)
[2020-01-13] MEDS: *HR* FentaNYL PATCH 12 MCG PATCH TD SCH ×2 (16:51→21:46)
[2020-01-13] MEDS: *HR* LORazepam 1 MG TABLET PO PRN (20:09)
[2020-01-13] MEDS: lamoTRIgine 100 MG TABLET PO SCH (20:10)
[2020-01-13] MEDS: hydrOXYzine pamoate 25 MG CAPSULE PO SCH (20:10)
[2020-01-13] MEDS: Sennosides 8.6 MG TABLET PO SCH (20:10)
[2020-01-13] MEDS: lisinopriL 10 MG TABLET PO SCH (20:10)
[2020-01-13] MEDS: Latanoprost 2.5 ML BOTTLE BOTH EYES SCH (20:11)
[2020-01-13] MEDS ORDERED: Divalproex (12 HR) 500 MG TABLET PO SCH (21:00)
[2020-01-13] MEDS: Ondansetron 4 MG/2 ML VIAL IVP PRN (23:26)
[2020-01-14 04:52] LABS: Hematocrit 37.6 % (35.3-44.9); Hemoglobin 12.2 g/dL (11.5-15.4); Mean Corpuscular HGB Conc 32.4 g/dL (31.6-35.5); Mean Corpuscular Hemoglobin 31.1 pg (28.0-33.3); Mean Corpuscular Volume 95.9 fL (83.0-100.0); Mean Platelet Volume 9.2 fL (9.4-12.4); Platelet Count 285 K/mcL (140-400); Red Blood Count 3.92 M/mcL (3.82-4.97); Red Cell Distribution Width 12.5 % (11.5-14.5); White Blood Count 7.9 K/mcL (4.3-11.1)
[2020-01-14 05:05] LABS: BUN/Creatinine Ratio 21 (6-26); Blood Urea Nitrogen 13 mg/dL (8-23); Calcium 9.1 mg/dL (8.6-10.3); Carbon Dioxide 25 mEq/L (23-29); Chloride 110 mEq/L (98-107); Glucose 127 mg/dL (70-105); Osmolality,Calculated 296 (280-300); Potassium 4.2 mEq/L (3.5-5.1); Sodium 142 mEq/L (136-145); eGFR For African Americans > 60 (> 60); eGFR For Non-African Americans > 60 (> 60)
[2020-01-14] MEDS: *HR* Heparin 5,000 UNIT/ML VIAL SQ SCH ×2 (05:05→14:11)
[2020-01-14] MEDS: Ondansetron 4 MG/2 ML VIAL IVP PRN (06:17)
[2020-01-14] MEDS: *HR* LORazepam 1 MG TABLET PO PRN ×2 (08:13→16:08)
[2020-01-14] MEDS: lamoTRIgine 100 MG TABLET PO SCH ×2 (08:13→20:47)
[2020-01-14] MEDS: Sennosides 8.6 MG TABLET PO SCH ×2 (08:13→20:46)
[2020-01-14] MEDS: lisinopriL 10 MG TABLET PO SCH ×2 (08:14→20:57)
[2020-01-14] MEDS: Divalproex (12 HR) 500 MG TABLET PO SCH (08:14)
[2020-01-14] MEDS: Famotidine 20 MG TABLET PO SCH (08:14)
[2020-01-14] MEDS: Acetaminophen 325 MG TABLET PO PRN ×2 (08:21→16:07)
[2020-01-14] MEDS ORDERED: Saline Nasal Spray 44 ML BOTTLE NS PRN (10:22)
[2020-01-14] MEDS: Sulfamethoxazole/Trimeth DS 1 EACH TABLET PO SCH ×2 (16:08→20:46)
[2020-01-14 16:57] LABS: Bilirubin,Urine Negative (Negative); Blood,Urine Negative (Negative); Clarity,Urine Turbid (Clear); Color,Urine Yellow (Yellow); Glucose,Urine (UA) Normal (Normal); Ketones,Urine 20 mg/dL (Negative); Leukocyte Esterase,Urine Large (Negative); Mucus,Urine Few per lpf (None-Few); Nitrite,Urine Negative (Negative); PH,Urine 6.5 pH Units (5.0-8.0); Protein,Urine Trace mg/dL (Neg-Trace); RBC,Urine 15-30 per hpf (0-3); Specific Gravity,Urine 1.026 (1.010-1.025); Squamous Epithelial Cell,Urine Few per hpf (None-Few); Urobilinogen,Urine Normal (Normal); WBC,Urine 50-100 per hpf (0-3)
[2020-01-14] MEDS: hydrOXYzine pamoate 25 MG CAPSULE PO SCH (20:46)
[2020-01-14] MEDS: 0.9 % Sodium Chloride 1,000 ML IVC SCH (20:47)
[2020-01-14] MEDS: Latanoprost 2.5 ML BOTTLE BOTH EYES SCH (20:59)
[2020-01-14] MEDS ORDERED: Divalproex (12 HR) 500 MG TABLET PO ONE (21:00)
[2020-01-15] MEDS: *HR* Heparin 5,000 UNIT/ML VIAL SQ SCH ×5 (00:58→21:00)
[2020-01-15] MEDS: *HR* LORazepam 1 MG TABLET PO PRN ×2 (00:58→15:07)
[2020-01-15] MEDS: Acetaminophen 325 MG TABLET PO PRN ×2 (01:24→16:10)
[2020-01-15 02:06] LABS: Valproate Free 7 ug/mL (7-23); Valproate Total 44 ug/mL (50-125)
[2020-01-15] MEDS: 0.9 % Sodium Chloride 1,000 ML IVC SCH (04:53)
[2020-01-15 06:12] LABS: Mean Corpuscular HGB Conc 31.2 g/dL (31.6-35.5); Mean Corpuscular Hemoglobin 31.4 pg (28.0-33.3); Mean Corpuscular Volume 100.6 fL (83.0-100.0); Mean Platelet Volume 9.1 fL (9.4-12.4); Platelet Count 243 K/mcL (140-400); Red Blood Count 3.38 M/mcL (3.82-4.97); Red Cell Distribution Width 12.7 % (11.5-14.5); White Blood Count 5.8 K/mcL (4.3-11.1)
[2020-01-15 06:13] LABS: Hemoglobin 10.6 g/dL (11.5-15.4)
[2020-01-15 06:34] LABS: BUN/Creatinine Ratio 30 (6-26); Blood Urea Nitrogen 22 mg/dL (8-23); Calcium 8.3 mg/dL (8.6-10.3); Carbon Dioxide 26 mEq/L (23-29); Chloride 113 mEq/L (98-107); Glucose 86 mg/dL (70-105); Osmolality,Calculated 299 (280-300); Potassium 4.2 mEq/L (3.5-5.1); Sodium 143 mEq/L (136-145); eGFR For African Americans > 60 (> 60); eGFR For Non-African Americans > 60 (> 60)
[2020-01-15] MEDS: Sennosides 8.6 MG TABLET PO SCH ×2 (08:35→20:57)
[2020-01-15] MEDS: lamoTRIgine 100 MG TABLET PO SCH ×2 (08:35→20:58)
[2020-01-15] MEDS: Sulfamethoxazole/Trimeth DS 1 EACH TABLET PO SCH ×2 (08:35→20:58)
[2020-01-15] MEDS: Famotidine 20 MG TABLET PO SCH (08:36)
[2020-01-15] MEDS: Divalproex (12 HR) 500 MG TABLET PO SCH (08:36)
[2020-01-15] MEDS: lisinopriL 10 MG TABLET PO SCH (08:37)
[2020-01-15] MEDS ORDERED: Cosyntropin 250 MCG/2 ML VIAL IVP ONE (10:15)
[2020-01-15 10:22] LABS: Valproate % Free 16 % (5-18)
[2020-01-15] MEDS: Ondansetron 4 MG/2 ML VIAL IVP PRN (15:07)
[2020-01-15] MEDS: lisinopriL 5 MG TABLET PO SCH (20:57)
[2020-01-15] MEDS: hydrOXYzine pamoate 25 MG CAPSULE PO SCH (20:57)
[2020-01-15] MEDS: Latanoprost 2.5 ML BOTTLE BOTH EYES SCH (20:59)
[2020-01-15] MEDS ORDERED: Divalproex (12 HR) 500 MG TABLET PO SCH (21:00)
[2020-01-16 04:48] LABS: Hematocrit 33.4 % (35.3-44.9); Hemoglobin 10.5 g/dL (11.5-15.4); Mean Corpuscular HGB Conc 31.4 g/dL (31.6-35.5); Mean Corpuscular Hemoglobin 30.8 pg (28.0-33.3); Mean Corpuscular Volume 97.9 fL (83.0-100.0); Mean Platelet Volume 9.2 fL (9.4-12.4); Platelet Count 261 K/mcL (140-400); Red Blood Count 3.41 M/mcL (3.82-4.97); Red Cell Distribution Width 12.6 % (11.5-14.5)
[2020-01-16 04:51] LABS: White Blood Count 8.9 K/mcL (4.3-11.1)
[2020-01-16 05:06] LABS: BUN/Creatinine Ratio 25 (6-26); Blood Urea Nitrogen 15 mg/dL (8-23); Calcium 8.9 mg/dL (8.6-10.3); Carbon Dioxide 28 mEq/L (23-29); Chloride 110 mEq/L (98-107); Glucose 80 mg/dL (70-105); Osmolality,Calculated 294 (280-300); Potassium 3.8 mEq/L (3.5-5.1); Sodium 142 mEq/L (136-145); eGFR For African Americans > 60 (> 60); eGFR For Non-African Americans > 60 (> 60)
[2020-01-16] MEDS: *HR* Heparin 5,000 UNIT/ML VIAL SQ SCH ×2 (06:09→14:16)
[2020-01-16] MEDS: Acetaminophen 325 MG TABLET PO PRN ×2 (06:18→14:16)
[2020-01-16] MEDS: lisinopriL 5 MG TABLET PO SCH (07:41)
[2020-01-16] MEDS: Sennosides 8.6 MG TABLET PO SCH (07:41)
[2020-01-16] MEDS: lamoTRIgine 100 MG TABLET PO SCH (07:41)
[2020-01-16] MEDS: Sulfamethoxazole/Trimeth DS 1 EACH TABLET PO SCH (07:41)
[2020-01-16] MEDS: Famotidine 20 MG TABLET PO SCH (07:42)
[2020-01-16] MEDS: Divalproex (12 HR) 500 MG TABLET PO SCH (07:42)
[2020-01-16 14:40] VITALS: BP 117/67
[2020-01-16] MEDS: *HR* FentaNYL PATCH 12 MCG PATCH TD SCH (17:04)
[2020-01-16 18:14] LABS: Adenovirus Not Detected (Not Detect); Bordetella Pertussis Not Detected (Not Detect); Chlamydophila pneumoniae Not Detected (Not Detect); Coronavirus 229E Not Detected (Not Detect); Coronavirus HKU1 Not Detected (Not Detect); Coronavirus NL63 Not Detected (Not Detect); Coronavirus OC43 Not Detected (Not Detect); Human Metapneumovirus Not Detected (Not Detect); Human Rhinovirus/Enterovirus Not Detected (Not Detect); Influenza A Subtype 2009 H1 Not Detected (Not Detect); Influenza B Not Detected (Not Detect); Mycoplasma pneumoniae Not Detected (Not Detect); Parainfluenza Virus 1 Not Detected (Not Detect); Parainfluenza Virus 2 Not Detected (Not Detect); Parainfluenza Virus 3 Not Detected (Not Detect); Parainfluenza Virus 4 Not Detected (Not Detect); Respiratory Syncytial Virus Not Detected (Not Detect); SARS-CoV-2 Not Detected (Not Detect)
== END 2020-01-16 20:25 | DRG 100 ==
LOC: 3ANU 11:17 → EMEROOARM 11:17 → SUATTDRO 18:17 → 3ANU 18:51
PROVIDERS: ADMIT Student in an Organized Health Care Education/Training Program; ATTEND Internal Medicine

== ENCOUNTER 2020-08-08 15:36 | Observation (INO) ==
[2020-08-08] MEDS ORDERED: 0.9 % Sodium Chloride 1,000 ML IVC ONE ×2 (16:32→23:24)
[2020-08-08 17:21] LABS: Hematocrit 40.7 % (35.3-44.9); Hemoglobin 13.2 g/dL (11.5-15.4); Mean Corpuscular HGB Conc 32.4 g/dL (31.6-35.5); Mean Corpuscular Hemoglobin 31.9 pg (28.0-33.3); Mean Corpuscular Volume 98.3 fL (83.0-100.0); Mean Platelet Volume 9.1 fL (9.4-12.4); Platelet Count 406 K/mcL (140-400); Red Blood Count 4.14 M/mcL (3.82-4.97); Red Cell Distribution Width 12.4 % (11.5-14.5); White Blood Count 15.5 K/mcL (4.3-11.1)
[2020-08-08 17:32] LABS: Alanine Aminotransferase 14 Units/L (7-52); Albumin 4.4 g/dL (3.5-5.7); Alkaline Phosphatase 44 Units/L (34-104); Aspartate Amino Transferase 16 Units/L (13-39); BUN/Creatinine Ratio 34 (6-26); Bilirubin,Direct 0.1 mg/dL (0.0-0.2); Bilirubin,Indirect 0.2 mg/dL (0.0-1.0); Bilirubin,Total 0.3 mg/dL (0.3-1.0); Blood Urea Nitrogen 40 mg/dL (8-23); Calcium 9.7 mg/dL (8.6-10.3); Carbon Dioxide 28 mEq/L (23-29); Chloride 103 mEq/L (98-107); Globulin 2.2 g/dL (2.4-3.5); Glucose 113 mg/dL (70-105); Osmolality,Calculated 297 (280-300); Potassium 5.5 mEq/L (3.5-5.1); Sodium 138 mEq/L (136-145); Total Protein 6.6 g/dL (6.4-8.9); Troponin I < 0.03 ng/mL (< 0.04); eGFR For African Americans 56 (> 60); eGFR For Non-African Americans 46 (> 60)
[2020-08-08 17:51] LABS: Bacteria,Urine Many per hpf (None-Few); Bilirubin,Urine Negative (Negative); Blood,Urine Moderate (Negative); Clarity,Urine Turbid (Clear); Color,Urine Yellow (Yellow); Glucose,Urine (UA) Normal (Normal); Ketones,Urine Negative (Negative); Leukocyte Esterase,Urine Large (Negative); Mucus,Urine Few per lpf (None-Few); Nitrite,Urine Negative (Negative); Protein,Urine 30 mg/dL (Neg-Trace); RBC,Urine 30-50 per hpf (0-3); Specific Gravity,Urine 1.023 (1.010-1.025); Urobilinogen,Urine Normal (Normal); WBC,Urine TNTC per hpf (0-3)
[2020-08-08] MEDS ORDERED: cefTRIAXone 1,000 MG in 0.9 % Sodium Chloride Mini Bag 100 ML IVPB ONE (18:11)
[2020-08-08] MEDS ORDERED: Melatonin 3 MG TABLET PO PRN (19:47)
[2020-08-08] MEDS ORDERED: Ondansetron 4 MG/2 ML VIAL IVP PRN (19:47)
[2020-08-08] MEDS ORDERED: Naloxone 0.4 MG/ML INJ IVP PRN (19:47)
[2020-08-08] MEDS ORDERED: 0.9 % Sodium Chloride 1,000 ML IVC SCH (20:00)
[2020-08-08] MEDS ORDERED: hydrOXYzine pamoate 25 MG CAPSULE PO PRN (22:25)
[2020-08-08] MEDS ORDERED: lisinopriL 5 MG TABLET PO SCH (22:30)
[2020-08-08] MEDS: Sennosides 8.6 MG TABLET PO SCH (23:02)
[2020-08-08] MEDS: Divalproex (12 HR) 500 MG TABLET PO SCH (23:20)
[2020-08-08] MEDS: hydrOXYzine pamoate 25 MG CAPSULE PO SCH (23:20)
[2020-08-08] MEDS: lamoTRIgine 100 MG TABLET PO SCH (23:21)
[2020-08-09] MEDS: *HR* LORazepam 1 MG TABLET PO PRN ×2 (05:42→23:06)
[2020-08-09 07:01] LABS: Hematocrit 34.1 % (35.3-44.9); Mean Corpuscular HGB Conc 31.7 g/dL (31.6-35.5); Mean Corpuscular Hemoglobin 31.2 pg (28.0-33.3); Mean Corpuscular Volume 98.6 fL (83.0-100.0); Mean Platelet Volume 8.8 fL (9.4-12.4); Platelet Count 290 K/mcL (140-400); Red Blood Count 3.46 M/mcL (3.82-4.97); Red Cell Distribution Width 12.4 % (11.5-14.5)
[2020-08-09 07:04] LABS: Hemoglobin 10.8 g/dL (11.5-15.4); White Blood Count 7.6 K/mcL (4.3-11.1)
[2020-08-09 07:20] LABS: BUN/Creatinine Ratio 26 (6-26); Blood Urea Nitrogen 21 mg/dL (8-23); Calcium 8.5 mg/dL (8.6-10.3); Carbon Dioxide 26 mEq/L (23-29); Chloride 112 mEq/L (98-107); Glucose 101 mg/dL (70-105); Osmolality,Calculated 295 (280-300); Potassium 4.8 mEq/L (3.5-5.1); Sodium 141 mEq/L (136-145); eGFR For African Americans > 60 (> 60); eGFR For Non-African Americans > 60 (> 60)
[2020-08-09] MEDS ORDERED: Ringers Solution, Lactated 1,000 ML IVC ONE (07:27)
[2020-08-09] MEDS ORDERED: Famotidine 20 MG TABLET PO SCH (09:00)
[2020-08-09] MEDS: lamoTRIgine 100 MG TABLET PO SCH ×2 (10:18→20:03)
[2020-08-09] MEDS: Divalproex (12 HR) 500 MG TABLET PO SCH ×2 (10:19→20:05)
[2020-08-09] MEDS: Loratadine 10 MG TABLET PO SCH (10:19)
[2020-08-09] MEDS: Sennosides 8.6 MG TABLET PO SCH ×2 (10:20→20:05)
[2020-08-09] MEDS: *HR* FentaNYL PATCH 12 MCG PATCH TD SCH (12:00)
[2020-08-09] MEDS: Artificial Tears SOLN 15 ML BOTTLE BOTH EYES PRN (13:42)
[2020-08-09] MEDS: cefTRIAXone 1,000 MG in 0.9 % Sodium Chloride Mini Bag 100 ML IVPB SCH (17:59)
[2020-08-09] MEDS: Acetaminophen 325 MG TABLET PO PRN (18:45)
[2020-08-09] MEDS: Ringers Solution, Lactated 1,000 ML IVC SCH (18:46)
[2020-08-09] MEDS: hydrOXYzine pamoate 25 MG CAPSULE PO SCH (20:06)
[2020-08-10] MEDS: Ringers Solution, Lactated 1,000 ML IVC SCH ×2 (01:51→15:12)
[2020-08-10 02:15] LABS: Basophils % 0.6 %; Eosinophils # 0.1 K/mcL (0.0-0.6); Eosinophils % 1.8 %; Hematocrit 31.7 % (35.3-44.9); Hemoglobin 9.9 g/dL (11.5-15.4); Immature Granulocytes % 0.4 % (0-4); Lymphocytes # 2.1 K/mcL (0.6-4.6); Lymphocytes % 30.9 %; Mean Corpuscular HGB Conc 31.2 g/dL (31.6-35.5); Mean Corpuscular Hemoglobin 30.7 pg (28.0-33.3); Mean Corpuscular Volume 98.4 fL (83.0-100.0); Mean Platelet Volume 8.9 fL (9.4-12.4); Monocytes # 0.6 K/mcL (0.0-1.3); Monocytes % 8.5 %; Neutrophils # 3.9 K/mcL (1.6-8.9); Platelet Count 259 K/mcL (140-400); Red Blood Count 3.22 M/mcL (3.82-4.97); Red Cell Distribution Width 12.4 % (11.5-14.5); Segmented Neutrophils % 57.8 %; White Blood Count 6.7 K/mcL (4.3-11.1)
[2020-08-10 02:39] LABS: % Iron Saturation 18 % (15-50); Alanine Aminotransferase 9 Units/L (7-52); Albumin 3.3 g/dL (3.5-5.7); Albumin/Globulin Ratio 2.1 (1.1-2.2); Alkaline Phosphatase 35 Units/L (34-104); Aspartate Amino Transferase 10 Units/L (13-39); BUN/Creatinine Ratio 16 (6-26); Bilirubin,Direct 0.1 mg/dL (0.0-0.2); Bilirubin,Indirect 0.1 mg/dL (0.0-1.0); Bilirubin,Total 0.2 mg/dL (0.3-1.0); Blood Urea Nitrogen 12 mg/dL (8-23); Calcium 8.5 mg/dL (8.6-10.3); Carbon Dioxide 24 mEq/L (23-29); Chloride 111 mEq/L (98-107); Globulin 1.6 g/dL (2.4-3.5); Glucose 87 mg/dL (70-105); Iron 55 mcg/dL (50-170); Magnesium 1.9 mg/dL (1.6-2.6); Osmolality,Calculated 291 (280-300); Potassium 4.3 mEq/L (3.5-5.1); Sodium 141 mEq/L (136-145); Total Protein 4.9 g/dL (6.4-8.9); Transferrin 222 mg/dL (203-362); eGFR For African Americans > 60 (> 60); eGFR For Non-African Americans > 60 (> 60)
[2020-08-10 02:51] LABS: Ferritin 86 ng/mL (10-120)
[2020-08-10 02:57] LABS: Folate 8.4 ng/mL (3.0-16.0)
[2020-08-10] MEDS: *HR* Enoxaparin 40 MG/0.4 ML SYRINGE SQ SCH (05:46)
[2020-08-10] MEDS: Acetaminophen 325 MG TABLET PO PRN ×2 (05:53→18:08)
[2020-08-10] MEDS: Divalproex (12 HR) 500 MG TABLET PO SCH ×2 (08:53→21:09)
[2020-08-10] MEDS: Loratadine 10 MG TABLET PO SCH (08:53)
[2020-08-10] MEDS: Famotidine 20 MG TABLET PO SCH (08:53)
[2020-08-10] MEDS: Sennosides 8.6 MG TABLET PO SCH ×2 (08:53→21:16)
[2020-08-10] MEDS: lamoTRIgine 100 MG TABLET PO SCH ×2 (08:54→21:14)
[2020-08-10] MEDS: Artificial Tears SOLN 15 ML BOTTLE BOTH EYES PRN (15:13)
[2020-08-10] MEDS: cefTRIAXone 1,000 MG in 0.9 % Sodium Chloride Mini Bag 100 ML IVPB SCH (17:06)
[2020-08-10] MEDS: hydrOXYzine pamoate 25 MG CAPSULE PO SCH (21:10)
[2020-08-10] MEDS: *HR* LORazepam 1 MG TABLET PO PRN (21:15)
[2020-08-11] MEDS: Ringers Solution, Lactated 1,000 ML IVC SCH ×2 (01:50→12:08)
[2020-08-11] MEDS: Acetaminophen 325 MG TABLET PO PRN ×2 (05:53→23:23)
[2020-08-11] MEDS: *HR* Enoxaparin 40 MG/0.4 ML SYRINGE SQ SCH (05:55)
[2020-08-11 06:18] LABS: Basophils % 0.5 %; Eosinophils # 0.2 K/mcL (0.0-0.6); Eosinophils % 4.2 %; Hematocrit 30.7 % (35.3-44.9); Hemoglobin 9.8 g/dL (11.5-15.4); Immature Granulocytes % 0.7 % (0-4); Lymphocytes # 2.2 K/mcL (0.6-4.6); Lymphocytes % 39.4 %; Mean Corpuscular HGB Conc 31.9 g/dL (31.6-35.5); Mean Corpuscular Hemoglobin 30.9 pg (28.0-33.3); Mean Corpuscular Volume 96.8 fL (83.0-100.0); Mean Platelet Volume 8.8 fL (9.4-12.4); Monocytes # 0.4 K/mcL (0.0-1.3); Monocytes % 7.2 %; Neutrophils # 2.7 K/mcL (1.6-8.9); Platelet Count 231 K/mcL (140-400); Red Blood Count 3.17 M/mcL (3.82-4.97); Red Cell Distribution Width 12.6 % (11.5-14.5); White Blood Count 5.7 K/mcL (4.3-11.1)
[2020-08-11 06:37] LABS: BUN/Creatinine Ratio 15 (6-26); Blood Urea Nitrogen 10 mg/dL (8-23); Calcium 8.6 mg/dL (8.6-10.3); Carbon Dioxide 26 mEq/L (23-29); Chloride 112 mEq/L (98-107); Glucose 92 mg/dL (70-105); Magnesium 1.8 mg/dL (1.6-2.6); Osmolality,Calculated 295 (280-300); Potassium 3.9 mEq/L (3.5-5.1); Sodium 143 mEq/L (136-145); eGFR For African Americans > 60 (> 60); eGFR For Non-African Americans > 60 (> 60)
[2020-08-11] MEDS: lamoTRIgine 100 MG TABLET PO SCH ×2 (08:14→23:22)
[2020-08-11] MEDS: Famotidine 20 MG TABLET PO SCH (08:14)
[2020-08-11] MEDS: Sennosides 8.6 MG TABLET PO SCH (08:14)
[2020-08-11] MEDS: Divalproex (12 HR) 500 MG TABLET PO SCH ×2 (08:14→23:23)
[2020-08-11] MEDS: Loratadine 10 MG TABLET PO SCH (08:15)
[2020-08-11] MEDS: Artificial Tears SOLN 15 ML BOTTLE BOTH EYES PRN (12:11)
[2020-08-11] MEDS ORDERED: Iron Sucrose Complex 250 MG in 0.9 % Sodium Chloride 250 ML IVPB ONE (18:46)
[2020-08-11] MEDS: hydrOXYzine pamoate 25 MG CAPSULE PO SCH (23:23)
[2020-08-11] MEDS: *HR* LORazepam 1 MG TABLET PO PRN (23:25)
[2020-08-12] MEDS: Ringers Solution, Lactated 1,000 ML IVC SCH ×2 (01:06→11:08)
[2020-08-12 01:55] LABS: Basophils % 0.5 %; Eosinophils # 0.2 K/mcL (0.0-0.6); Hematocrit 30.1 % (35.3-44.9); Hemoglobin 9.8 g/dL (11.5-15.4); Immature Granulocytes % 0.7 % (0-4); Lymphocytes # 1.8 K/mcL (0.6-4.6); Lymphocytes % 31.3 %; Mean Corpuscular HGB Conc 32.6 g/dL (31.6-35.5); Mean Corpuscular Hemoglobin 31.3 pg (28.0-33.3); Mean Corpuscular Volume 96.2 fL (83.0-100.0); Mean Platelet Volume 9.9 fL (9.4-12.4); Monocytes # 0.6 K/mcL (0.0-1.3); Monocytes % 10.7 %; Neutrophils # 3.1 K/mcL (1.6-8.9); Platelet Count 202 K/mcL (140-400); Red Blood Count 3.13 M/mcL (3.82-4.97); Red Cell Distribution Width 12.1 % (11.5-14.5); Segmented Neutrophils % 53.8 %; White Blood Count 5.7 K/mcL (4.3-11.1)
[2020-08-12 02:17] LABS: Alanine Aminotransferase 9 Units/L (7-52); Albumin 3.3 g/dL (3.5-5.7); Albumin/Globulin Ratio 2.1 (1.1-2.2); Alkaline Phosphatase 31 Units/L (34-104); Aspartate Amino Transferase 11 Units/L (13-39); BUN/Creatinine Ratio 16 (6-26); Bilirubin,Indirect 0.3 mg/dL (0.0-1.0); Bilirubin,Total 0.3 mg/dL (0.3-1.0); Blood Urea Nitrogen 12 mg/dL (8-23); Calcium 8.4 mg/dL (8.6-10.3); Carbon Dioxide 25 mEq/L (23-29); Chloride 110 mEq/L (98-107); Globulin 1.6 g/dL (2.4-3.5); Glucose 91 mg/dL (70-105); Magnesium 1.7 mg/dL (1.6-2.6); Osmolality,Calculated 293 (280-300); Potassium 3.6 mEq/L (3.5-5.1); Sodium 142 mEq/L (136-145); Total Protein 4.9 g/dL (6.4-8.9); eGFR For African Americans > 60 (> 60); eGFR For Non-African Americans > 60 (> 60)
[2020-08-12] MEDS: *HR* Enoxaparin 40 MG/0.4 ML SYRINGE SQ SCH (06:02)
[2020-08-12] MEDS: Famotidine 20 MG TABLET PO SCH (08:35)
[2020-08-12] MEDS: Loratadine 10 MG TABLET PO SCH (08:36)
[2020-08-12] MEDS: lamoTRIgine 100 MG TABLET PO SCH ×2 (08:36→20:15)
[2020-08-12] MEDS: Divalproex (12 HR) 500 MG TABLET PO SCH ×2 (08:36→20:17)
[2020-08-12] MEDS: Artificial Tears SOLN 15 ML BOTTLE BOTH EYES PRN (08:44)
[2020-08-12] MEDS ORDERED: levoFLOXacin 500 MG TABLET PO SCH (09:00)
[2020-08-12] MEDS: Acetaminophen 325 MG TABLET PO PRN ×2 (09:34→17:36)
[2020-08-12] MEDS: *HR* FentaNYL PATCH 12 MCG PATCH TD SCH (11:09)
[2020-08-12] MEDS: hydrOXYzine pamoate 25 MG CAPSULE PO SCH (20:15)
[2020-08-12] MEDS: *HR* LORazepam 1 MG TABLET PO PRN (20:16)
[2020-08-13] MEDS: *HR* Enoxaparin 40 MG/0.4 ML SYRINGE SQ SCH (06:26)
[2020-08-13] MEDS: Divalproex (12 HR) 500 MG TABLET PO SCH (08:10)
[2020-08-13] MEDS: Acetaminophen 325 MG TABLET PO PRN ×2 (08:11→17:02)
[2020-08-13] MEDS: Loratadine 10 MG TABLET PO SCH (08:12)
[2020-08-13] MEDS: lamoTRIgine 100 MG TABLET PO SCH (08:12)
[2020-08-13] MEDS: Artificial Tears SOLN 15 ML BOTTLE BOTH EYES PRN (08:13)
[2020-08-13 08:55] LABS: Basophils % 0.8 %; Eosinophils # 0.2 K/mcL (0.0-0.6); Hemoglobin 10.6 g/dL (11.5-15.4); Immature Granulocytes % 0.8 % (0-4); Lymphocytes # 1.8 K/mcL (0.6-4.6); Mean Corpuscular HGB Conc 32.1 g/dL (31.6-35.5); Mean Corpuscular Hemoglobin 31.3 pg (28.0-33.3); Mean Corpuscular Volume 97.3 fL (83.0-100.0); Mean Platelet Volume 9.3 fL (9.4-12.4); Monocytes # 0.6 K/mcL (0.0-1.3); Monocytes % 11.8 %; Neutrophils # 2.4 K/mcL (1.6-8.9); Platelet Count 256 K/mcL (140-400); Red Blood Count 3.39 M/mcL (3.82-4.97); Red Cell Distribution Width 12.5 % (11.5-14.5); Segmented Neutrophils % 47.6 %
[2020-08-13] MEDS ORDERED: Famotidine 20 MG TABLET PO SCH (09:00)
[2020-08-13] MEDS ORDERED: levoFLOXacin 250 MG TABLET PO SCH (09:00)
[2020-08-13 09:16] LABS: BUN/Creatinine Ratio 13 (6-26); Blood Urea Nitrogen 9 mg/dL (8-23); Calcium 9.2 mg/dL (8.6-10.3); Carbon Dioxide 28 mEq/L (23-29); Chloride 109 mEq/L (98-107); Glucose 91 mg/dL (70-105); Magnesium 1.7 mg/dL (1.6-2.6); Osmolality,Calculated 294 (280-300); Potassium 3.6 mEq/L (3.5-5.1); Sodium 143 mEq/L (136-145); eGFR For African Americans > 60 (> 60); eGFR For Non-African Americans > 60 (> 60)
[2020-08-13 19:11] VITALS: BP 141/77
== END 2020-08-13 19:55 | disposition home health service (06) ==
LOC: EMEROOARM 15:36 → 2NENU 15:36 → SUATTDRO 18:22 → 2NENU 20:27
PROVIDERS: ADMIT Internal Medicine; ATTEND Pharmacist